=== PATIENT | male | born 1995 | race African-American/Black ===

== ENCOUNTER 2017-12-05 14:10 | Emergency (ER) | payer OTHER ==
[~2017-12-05] VITALS: Ht 175.3 cm; Wt 58.3 kg
[2017-12-05] MEDS ORDERED: AMOXICILLIN875 MG PO (15:46)
[2017-12-05 16:15] VITALS: BP 108/67
== END 2017-12-05 16:16 | disposition home or self-care (01) ==
LOC: EDBD 14:10 → EME 14:10
DX: T75.1XXA Unspecified effects of drowning and nonfatal submersion, initial encounter (principal); R04.0 Epistaxis; J32.2 Chronic ethmoidal sinusitis; Y92.838 Other recreation area as the place of occurrence of the external cause; Y93.12 Activity, springboard and platform diving
CPT/HCPCS: 70450; 71046; 72125; 99281; 99284